=== PATIENT | female | born 1965 | race Caucasian/White ===

== ENCOUNTER 2018-04-04 15:47 | Emergency (ER) | payer MEDICAID ==
[~2018-04-04] VITALS: Ht 160 cm; Wt 107.0 kg
[~2018-04-04 15:47] MED LIST: HYDR-3965 PO; PENI500T2 PO
[2018-04-04 15:57] VITALS: BP 143/102
[2018-04-04] MEDS ORDERED: IBUP-1985 PO (16:09)
== END 2018-04-04 16:41 | disposition home or self-care (01) ==
LOC: ER 15:47
DX: M25.461 Effusion, right knee (principal); J45.909 Unspecified asthma, uncomplicated; E11.9 Type 2 diabetes mellitus without complications; F17.210 Nicotine dependence, cigarettes, uncomplicated
CPT/HCPCS: 29505; 99283

== ENCOUNTER 2018-05-23 12:20 | Day surgery (SDC) | payer MEDICAID ==
[2018-05-22 11:16] LABS: BASOPHILS % (AUTO) 0.6 % (0-1); EOSINOPHILS # (AUTO) 0.2 X10'3 (0-0.9); LYMPHOCYTES # (AUTO) 2.8 X10'3 (1.1-4.8); LYMPHOCYTES % (AUTO) 38.2 % (21-51); MEAN CORPUSCULAR HEMOGLOBIN 34.5 PG (27.0-31.0); MEAN CORPUSCULAR HGB CONC 34.8 % (33.0-36.5); MEAN PLATELET VOLUME 8.1 FL (7.4-10.4); MONOCYTES # (AUTO) 0.5 X10'3 (0-0.9); MONOCYTES % (AUTO) 6.6 % (2-12); NEUTROPHILS # (AUTO) 3.8 X10'3 (1.8-7.7); NEUTROPHILS % (AUTO) 51.6 % (42-75); PRE OP HEMOGLOBIN 15.3 g/dL (12.0-16.0); PRE OP PLATELET COUNT 232 X10'3 (140-440); RED BLOOD COUNT 4.44 X10'6 (4.20-5.60); RED CELL DISTRIBUTION WIDTH 14.8 % (11.5-14.5)
[2018-05-22 11:34] LABS: ALBUMIN 3.7 G/DL (3.4-5.0); ALBUMIN/GLOBULIN RATIO 1.2 (1.1-1.5); ALKALINE PHOSPHATASE 69 IU/L (46-116); BLOOD UREA NITROGEN 12 MG/DL (7-18); BUN/CREATININE RATIO 17.6 (6.6-38.0); CALCIUM 9.6 MG/DL (8.5-10.1); CHLORIDE 101 MMOL/L (99-107); CREATININE 0.68 MG/DL (0.40-0.90); PRE OP ALT 32 U/L (30-65); PRE OP ANION GAP 8 (8-16); PRE OP BILIRUB, TOTAL 0.4 MG/DL (0.0-1.0); PRE OP GLUCOSE 115 MG/DL (70-104); PRE OP SODIUM 137 MMOL/L (135-145); TOTAL CARBON DIOXIDE 28.5 MMOL/L (24-32); TOTAL PROTEIN 6.8 G/DL (6.4-8.2); eGFR > 90 ML/MIN
[2018-05-22 11:35] LABS: PRE OP AST 34 U/L (10-37); PRE OP POTASSIUM 4.6 MMOL/L (3.4-5.1)
[~2018-05-23] VITALS: Ht 160 cm; Wt 108.0 kg
[2018-05-23] VITALS (8 sets, daily range): BP systolic 113–121; BP diastolic 58–85
[~2018-05-23 12:20] MED LIST changes: +ALB0.5UD IH; +ALBU18HF2 INH; +ALPR1TAB7 PO; +Cefazolin 2GM/50ML dext iso,osmotic IVPB IV ONE; +ESCI20TA PO; +FERR-119 PO; +GABA-532 PO; -HYDR-3965 PO; +HYDR-3972 PO; +HYDR12.55 PO; +LOSA25TA96 PO; +METF10004 PO; +OMEP20CA10 PO; +OXYGEN; -PENI500T2 PO; +TRAM50TA2 PO; +VANCOMYCIN INJ 1000 MG in NORMAL SALINE 250ml IV.SOLN IV ONE; +albuterol 2.5 MG/3 ML nebule NEB ONE; +famotidine 20mg tablet PO ONE; +ringers solution, lacted 1,000 ML IV SCH
[2018-05-23] MEDS ORDERED: methylPREDNISolone sod succ 125mg/2ml vial ONE (12:55)
[2018-05-23] MEDS ORDERED: BUPIVAcaine/PF 2.5mg/ml (0.25%) 10ml vial ONE (12:55)
[2018-05-23] MEDS ORDERED: LIDOcaine 0.5% (5mg/ml) 50ml vial ONE (15:41)
[2018-05-23] MEDS ORDERED: fentaNYL/PF 50MCG/1 ML 2ML syringe ONE (15:44)
[2018-05-23] MEDS ORDERED: MIDAZolam 5mg/5ml vial ONE (15:45)
[2018-05-23] MEDS ORDERED: propofol inj 20 ML IV ONE (16:02)
[2018-05-23] MEDS ORDERED: fentaNYL/PF 50MCG/1 ML 2ML syringe IV PRN ×2 (16:10)
[2018-05-23] MEDS ORDERED: ondansetron/PF 4mg/2ml inj IV PRN (16:10)
[2018-05-23] MEDS ORDERED: hydrALAZINE 20mg/ml inj. IV PRN (16:10)
[2018-05-23] MEDS ORDERED: labetalol 20mg/4ml (5mg/ml) syringe IV PRN (16:10)
[2018-05-23] MEDS ORDERED: morphine 4 MG/ML inj SYRINge IV PRN ×2 (16:10)
[2018-05-23] MEDS ORDERED: ringers solution, lacted 1,000 ML IV SCH (16:10)
[2018-05-23] MEDS ORDERED: HYDROcodone/acetaminophen 10/325mg tab PO ONE (17:00)
== END 2018-05-23 17:15 | disposition home or self-care (01) ==
LOC: PAS 12:20
PROVIDERS: ATTEND Orthopaedic Surgery
DX: G56.01 Carpal tunnel syndrome, right upper limb (principal); M25.831 Other specified joint disorders, right wrist; I10 Essential (primary) hypertension; F41.9 Anxiety disorder, unspecified; E66.01 Morbid (severe) obesity due to excess calories; E11.9 Type 2 diabetes mellitus without complications; F17.210 Nicotine dependence, cigarettes, uncomplicated; J45.998 Other asthma; F10.21 Alcohol dependence, in remission; G89.4 Chronic pain syndrome; Z99.81 Dependence on supplemental oxygen; Z79.84 Long term (current) use of oral hypoglycemic drugs; Z79.891 Long term (current) use of opiate analgesic; Z90.49 Acquired absence of other specified parts of digestive tract; Z98.890 Other specified postprocedural states; Z79.899 Other long term (current) drug therapy; Z68.41 Body mass index [BMI] 40.0-44.9, adult
CPT/HCPCS: 36415; 64719; 64721; 80053; 82948; 85025; 93005; 94640; A6222; A6449; J0690; J2001; J2250; J2704; J2930; J3010; J3370; J3490; J7120; A7000